=== PATIENT | male | born 1960 | race Caucasian/White ===

== ENCOUNTER 2017-06-26 15:26 | Inpatient (IN) | payer OTHER ==
--- NOTE | 2017-06-26 15:35 | EDPHY ---
H & P HPI/ROS: CHIEF COMPLAINT: LTA. Shoulder pain, Head laceration HISTORY OF PRESENT ILLNESS: The patient is a 57-year-old male, arrived via EMS, presenting as a Limited Trauma Activation. The patient had a mechanical fall while hiking down [facility]. The patient tripped and fell forward. He braced with his arms and hit his head. Immediate onset of severe bilateral shoulder pain. No GHOSH. The patient has a laceration to his head and abrasion to the nose. Also complains of right knee pain. Vitals in the field include HR: 72, BP: 170/100. BGL: 110. The patient received 100mcg Fentanyl and 4 Zofran during transport. Cervical collar in place. REVIEW OF SYSTEMS: Constitutional: No weakness Eyes: No visual changes or eye pain ENT: No dental trauma Neck: Cervical collar in place Respiratory: No shortness of breath Cardiac: left chest pain Gastrointestinal: left sided abd pain, no vomiting Back: No pain or injury Genitourinary: No hematuria Musculoskeletal: Bilateral shoulder pain, Right knee pain Skin: multiple lacerations/abrasions Neurological: mild headache, no dizziness (Roberta Faulkner) Past Medical/Surgical History: Hypertension, Hypothyroid, DM (Roberta Faulkner) Social History: Lives in [place], visiting his son in [place]. (Roberta Faulkner) Physical Exam: General Appearance: Alert, pleasant Head: 2cm frontal scalp laceration Face: Multiple facial abrasions. Superficial laceration to the bridge of his nose. Eyes: No conjunctival erythema, PERRLA, EOMI ENT, Mouth: No hemotympanum, no oral trauma, no bony tenderness. Nose: abrasion over nasal bridge. Neck: Non-tender, full range of motion without pain Respiratory: No chest wall tenderness, lungs clear bilaterally Cardiovascular: Regular rate and rhythm Abdomen: Abdomen is soft, mild LUQ tenderness. Skin: 2cm frontal scalp laceration. Abrasions over the hands. Back: No midline T/L/S tenderness Extremities: Pelvis is stable and nontender; full range of motion without pain. Bilateral shoulder tenderness. Tenderness and swelling of right knee. Neurological: A&Ox3, normal motor function, normal sensory exam, cranial nerves intact. Psychiatric: Mood and affect normal (Roberta Faulkner) Constitutional: Initial Vital Signs Temperature (C) 36.3 C 06/26/17 15:42 Heart Rate 72 06/26/17 15:42 Respiratory Rate 18 06/26/17 15:42 Blood Pressure 184/101 H 06/26/17 15:42 O2 Sat (%) 99 06/26/17 15:42 O2 Delivery Mode Room Air Allergies/Adverse Reactions: No Known Allergies Allergy (Unverified 06/26/17 15:45) Home Medications: Medication Instructions Recorded Levothyroxine [Synthroid 150 mcg 150 mcg PO DAILY06 06/26/17 (*)] Metoprolol Succinate 06/26/17 metFORMIN HCL [Glucophage 500 mg 500 mg PO BIDMEAL 06/26/17 (*)] Medical Decision Making - Diagnostics Imaging: Discussed imaging studies w/ scallop raker Radiologist - Diagnostics Imaging Results: Imaging Impressions Chest CT 06/26/17 00:00 Impression: 1. Bilateral surgical neck fractures. No dislocation. 2. No evidence of acute aortic injury. 3. Clear lungs. No pneumothorax or contusion. Findings discussed with Emergency Department physician, Roberta Faulkner, at 1740 hours 06/26/2017. Lumbar Spine CT 06/26/17 00:00 Impression: Negative. No acute fracture. Findings discussed with Emergency Department physician, Roberta Faulkner, at 1740 hours 06/26/2017. Thoracic Spine CT 06/26/17 00:00 Impression: Negative. No acute fracture. Findings discussed with Emergency Department physician, Roberta Faulkner, at 1740 hours 06/26/2017. Abdomen CT 06/26/17 15:35 Impression: 1. No evidence of solid organ or bowel injury. 2. No lumbar spine or pelvic fracture. 3. Cholelithiasis. 4. Left direct inguinal hernia containing only fat. 5. Ankylosis bilateral sacroiliac joints. Findings discussed with Emergency Department physician, Roberta Faulkner, at 1740 hours 06/26/2017. Cervical Spine CT 06/26/17 15:35 Impression: 1. No acute fracture or soft tissue swelling. 2. If the patient has persistent pain or neurologic deficits, consider cervical spine MRI. Findings discussed with Emergency Department physician, Roberta Faulkner, on June 26, 2017 at 1740. Chest X-Ray 06/26/17 15:35 Impression: Bilateral humeral head/neck fractures, otherwise negative trauma chest. Head CT 06/26/17 15:35 Impression: 1. No acute intracranial hemorrhage or acute skull fracture. 2. Frontal scalp swelling. 3. Old right medial orbital wall fracture. Findings discussed with Emergency Department physician, Roberta Faulkner, on June at 1740. Shoulder X-Ray 06/26/17 15:36 Impression: Acute transverse right humeral neck fracture. Dorsal chip avulsion from the AC joint. Shoulder X-Ray 06/26/17 15:36 Impression: Comminuted left humeral head/neck fracture. Knee X-Ray 06/26/17 17:45 Impression: Negative right knee radiographs. Procedures: Procedure: Laceration repair. Verbal consent was obtained from the patient. The 1 cm laceration on the right middle finger was anesthetized in the usual fashion. The wound was irrigated, draped and explored to its base with a gloved finger. There were no deep structures involved. No tendon injury was identified. The wound was repaired with 5 0 Prolene, 4 simple interrupted sutures. The wound repair was simple. The procedure was performed by myself. Procedure: Laceration repair. Verbal consent was obtained from the patient. The 2 cm laceration on the right 4th finger was anesthetized in the usual fashion. The wound was irrigated, draped and explored to its base with a gloved finger. There were no deep structures involved. No tendon injury was identified. The wound was repaired with 5 0 Prolene, 5 simple interrupted sutures. The wound repair was simple. The procedure was performed by myself. (Darwin Hernandez) ED Course/Re-evaluation: Patient presents as Limited Trauma Activation. Patient has bilateral shoulder tenderness on exam, x-ray imaging was ordered. He has a laceration to the frontal scalp, CT head ordered for GHOSH and mechanism of injury. He has mild left upper quadrant, CT abd/pelvis ordered. Patient is in a cervical collar, I ordered CT cervical spine. X-ray shows bilateral proximal humerus fractures. Please see imaging section for full report. I discussed the findings with the patient. CT imaging is pending. CT abd/pelv and CT cervical spine are negative. I cleared the patient's c- spine. Patient continues to have left knee pain. He has swelling and pain with extension. I ordered a knee x-ray. Xray negative. The patient is unable to use his arms due to pain. He lives in [place] and is currently unable to drive home. I recommended admission, patient agrees with the plan. 1749: I consulted the general surgeon, Dr. Parry, who accepts the patient for admission. 1804: I spoke to Dr. Bright, Orthopedic surgery, he will consult on the patient and plan for operative repair tomorrow. Procedure: Laceration repair. The 2cm laceration on the frontal scalp was anesthetized using lidocaine. The wound was irrigated, draped and explored to its base with a gloved finger. There were no deep structures involved. No foreign body palpable. The wound was repaired with 2 taco. The wound repair was simple. The patient has multiple lacerations to his right 3rd and 4th fingers. The wounds were anesthetized using lidocaine. The wound was irrigated. The wound was repaired by the MOOSE Hernandez. (Roberta Faulkner) Differential Diagnosis: Differential diagnosis includes though it is not limited to open fracture, intracranial hemorrhage, pneumothorax, hemothorax, intra-abdominal hemorrhage. ( Roberta Faulkner) - Data Points Laboratory Results: Laboratory Results 06/26/17 15:37 06/26/17 15:37 06/26/17 06/26/17 06/26/17 15:37 15:37 15:34 WBC 13.94 10^3/uL H 10^3/uL (3.80-9.50) RBC 4.55 10^6/uL 10^6/uL (4.40-6.38) Hgb 15.1 g/dL g/dL (13.7-17.5) POC Hgb 15.0 gm/dL gm/dL (13.7-17.5) Hct 42.9 % % (40.0-51.0) POC Hct 44 % % (40-51) MCV 94.3 fL fL (81.5-99.8) MCH 33.2 pg pg (27.9-34.1) MCHC 35.2 g/dL g/dL (32.4-36.7) RDW 12.8 % % (11.5-15.2) Plt Count 215 10^3/uL 10^3/uL (150-400) MPV 9.6 fL fL (8.7-11.7) Neut % (Auto) 85.3 % H % (39.3-74.2) Lymph % (Auto) 7.3 % L % (15.0-45.0) [place] % (Auto) 6.3 % % (4.5-13.0) Eos % (Auto) 0.3 % L % (0.6-7.6) Baso % (Auto) 0.4 % % (0.3-1.7) Nucleat RBC Rel Count 0.0 % % (0.0-0.2) Absolute Neuts (auto) 11.89 10^3/uL H 10^3/uL (1.70-6.50) Absolute Lymphs (auto) 1.02 10^3/uL 10^3/uL (1.00-3.00) Absolute Monos (auto) 0.88 10^3/uL H 10^3/uL (0.30-0.80) Absolute Eos (auto) 0.04 10^3/uL 10^3/uL (0.03-0.40) Absolute Basos (auto) 0.06 10^3/uL 10^3/uL (0.02-0.10) Absolute Nucleated RBC 0.00 10^3/uL 10^3/uL (0-0.01) Immature Gran % 0.4 % % (0.0-1.1) Immature Gran # 0.05 10^3/uL 10^3/uL (0.00-0.10) POC Sodium 149 mEq/L H mEq/L (134-144) Sodium 145 mEq/L H mEq/L (134-144) POC Potassium 3.6 mEq/L mEq/L (3.3-5.0) Potassium 3.9 mEq/L mEq/L (3.5-5.2) POC Chloride 112 mEq/L H mEq/L (97-110) Chloride 111 mEq/L H mEq/L (97-110) Carbon Dioxide 22 mEq/l mEq/l (22-31) Anion Gap 12 mEq/L mEq/L (8-16) POC BUN 25 mg/dL H mg/dL (7-23) BUN 24 mg/dL H mg/dL (7-23) Creatinine 0.7 mg/dL mg/dL (0.7-1.3) POC Creatinine 0.8 mg/dL mg/dL (0.7-1.3) Estimated GFR > 60 Glucose 111 mg/dL H mg/dL (70-100) POC Glucose 119 mg/dL H mg/dL (70-100) Calcium 9.4 mg/dL mg/dL (8.5-10.4) Medications Given: Hydromorphone HCl (Dilaudid) 0.8 - 1.2 mg IVP Q4 PRN PRN Reason: Pain, Severe Unable to Take PO Stop: 07/06/17 21:59 Last Admin: 06/26/17 22:33 Dose: 1 mg Potassium Chloride/Dextrose/Sod Cl (D5w 1/2 Ns W/ 20 Kcl/L) 1,000 mls @ 125 mls /hr IV CONT DENISA Stop: 12/23/17 21:59 Last Admin: 06/26/17 22:33 Dose: 1,000 mls Discontinued Medications Hydromorphone HCl (Dilaudid) 0.5 mg IVP EDNOW ONE Stop: 06/26/17 19:40 Last Admin: 06/26/17 19:45 Dose: 0.5 mg Sodium Chloride (Ns) 1,000 mls @ 0 mls/hr IV ONCE ONE; Wide Open PRN Reason: Protocol Stop: 06/26/17 15:51 Last Admin: 06/26/17 16:00 Dose: 1,000 mls Morphine Sulfate (Morphine) 6 mg IVP EDNOW ONE Stop: 06/26/17 15:36 Last Admin: 06/26/17 16:18 Dose: 6 mg Morphine Sulfate (Morphine) 6 mg IVP EDNOW ONE Stop: 06/26/17 16:17 Last Admin: 06/26/17 16:23 Dose: Not Given Point of Care Test Results: 06/26/17 15:34 POC Sodium 149 H POC Potassium 3.6 POC Chloride 112 H POC BUN 25 H POC Creatinine 0.8 POC Glucose 119 H Departure - Departure Disposition: [facility] Inpatient Acute Clinical Impression: Bilateral proximal humeral fractures, Multiple abrasions Scalp laceration Qualifiers: Encounter type: initial encounter Qualified Code(s): S01.01XA - Laceration without foreign body of scalp, initial encounter Finger laceration Qualifiers: Encounter type: initial encounter Finger: middle finger Damage to nail status: without damage Foreign body presence: without foreign body Laterality: right Qualified Code(s): S61.212A - Laceration without foreign body of right middle finger without damage to nail, initial encounter Condition: Fair Report Scribed for: Roberta Faulkner Report Scribed by: Iliana Webber Date of Report: 06/26/17 Time of Report: 15:41 Physician Review and Approval Statement: 06/26/17 15:41 Portions of this note were transcribed by a senior medical technologist. I personally performed the history, physical exam, and medical decision-making; and confirmed the accuracy of the information in the transcribed note. (Roberta Faulkner)
[2017-06-26 15:48] LABS: % IMMATURE GRANULYOCYTES 0.4 % (0.0-1.1); ABSOLUTE IMMATURE GRANULOCYTES 0.05 10^3/uL (0.00-0.10); ADD DIFF? NO; ADD MORPH? NO; ADD SCAN? NO; ATYPICAL LYMPHOCYTE FLAG 0 (0-99); FRAGMENT RBC FLAG 0 (0-99); HEMATOCRIT 42.9 % (40.0-51.0); HEMOGLOBIN 15.1 g/dL (13.7-17.5); LEFT SHIFT FLG 0 (0-99); LIPEMIA HEMOLYSIS FLAG 90 (0-99); MEAN CELL HEMOGLOBIN 33.2 pg (27.9-34.1); MEAN CELL HEMOGLOBIN CONCENTR. 35.2 g/dL (32.4-36.7); MEAN CELL VOLUME 94.3 fL (81.5-99.8); MEAN PLATELET VOLUME 9.6 fL (8.7-11.7); PLATELET CLUMPS FLAG 0 (0-99); PLATELET COUNT 215 10^3/uL (150-400); RED BLOOD CELL COUNT 4.55 10^6/uL (4.40-6.38); RED CELL DISTRIBUTION WIDTH 12.8 % (11.5-15.2)
[2017-06-26] MEDS ORDERED: NS 1,000 ML IV ONE (15:50)
[2017-06-26] MEDS ORDERED: IOPAMIDOL (ISOVUE-300) 100 ML BTL ONE ×2 (15:52→16:02)
[2017-06-26 16:14] LABS: ANION GAP 12 mEq/L (8-16); CALCIUM 9.4 mg/dL (8.5-10.4); CARBON DIOXIDE 22 mEq/l (22-31); CHLORIDE 111 mEq/L (97-110); CREATININE 0.7 mg/dL (0.7-1.3); GLOMERULAR FILTRATION RATE > 60; GLUCOSE 111 mg/dL (70-100); POTASSIUM 3.9 mEq/L (3.5-5.2); SODIUM 145 mEq/L (134-144)
[2017-06-26 19:00] LABS: COLOR PALE YELLOW; LEUKOCYTE ESTERASE,URINE NEGATIVE (NEGATIVE); NITRITE,URINE NEGATIVE (NEGATIVE)
[2017-06-26] MEDS ORDERED: HYDROmorphONE/DILAUDID 1 MG/ML INJ IVP ONE (19:39)
[2017-06-26] MEDS ORDERED: HYDROGEN PEROXIDE 236 ML BOTTLE TP ONE (20:06)
--- NOTE | 2017-06-26 20:25 | GHP ---
[f rep st] PREOP HISTORY AND PHYSICAL DATE OF ADMISSION: 06/26/2017 HISTORY OF PRESENT ILLNESS: A 57-year-old male who tripped [place], sustaining bilateral upper arm pain. He did strike his head and does not remember the details of the events but presently is alert and oriented, and complaining only of arm pain, some right knee pain and some discomfort in his right hand. Evaluation in the ER revealed a normal x-ray of his right knee. His head scan was negative for any acute injuries, as well as his neck CT scan. He is complaining of no cervical pain. Abdominal CT scan shows some gallstones and left inguinal hernia but no acute traumatic findings. Spine x-rays were negative for any acute fractures. Chest x-ray and arm x- rays reveal bilateral surgical neck fractures with no dislocation and no other chest trauma. He is admitted at this point for Orthopedic consult, pain control and potential rehab. PAST MEDICAL HISTORY: Includes thyroid treatment with radiation for hyperthyroidism. He has some exophthalmos. He has had hypertension in the past and type 2 diabetes. FAMILY HISTORY: Noncontributory. REVIEW OF SYSTEMS: Reveals no other major medical problems on a full 10-point review of systems. He does have mild hypertension. ALLERGIES: None. MEDICATIONS: Synthroid, metformin, and metoprolol. PHYSICAL EXAM: GENERAL: Reveals an alert 57-year-old male in no acute distress. VITAL SIGNS: He is afebrile. Blood pressure 180/100. HEAD and NECK : Reveals some scalp and nasal abrasions, and a small 2 cm frontal scalp laceration. Pupils are equal. His eyes are nonicteric. He does have some exophthalmos. There are no oral lesions. NECK: Supple, nontender. CHEST: Clear to auscultation and percussion. There are no palpable rib fractures or deformities. CARDIAC: Regular rhythm without murmurs. ABDOMEN: Soft and nontender without masses. EXTREMITIES: Reveal full range of motion in lower extremies but limited movement bilateral UE, full pulses. He has some discomfort in his right knee and mild amount of swelling over his patella, but he does have full range of motion. BACK: Reveals no major tenderness or deformities. NEUROLOGIC: Physiologic and symmetric with intact cranial nerves. He is alert and oriented and 5+ motor exam. PSYCHIATRIC: Reveals him to be cooperative, alert, oriented. SKIN: Reveals some abrasions over his right hand particularly, and a 2 cm frontal scalp laceration. PLAN: Admit for evaluation. Orthopedic consultation. IMPRESSION: 1. Closed head injury with scalp laceration and abrasions. 2. Bilateral humeral neck fractures without dislocation. 3. Blunt right knee trauma. /[id number]/MODL MTDD
--- NOTE | 2017-06-26 20:49 | GCON ---
[f rep st] CONSULTATION DATE OF CONSULTATION: 06/26/2017 CHIEF COMPLAINT: Bilateral shoulder pain, head laceration. HISTORY OF PRESENT ILLNESS: This is a 57-year-old male, who is brought in after a fall hiking. He c aught himself from tripping forward with his arms and he did hit his head. He has a laceration to he ad. He was seen and evaluated, diagnosed with proximal humerus fracture. He also complains of right knee pain, right hand pain, lacerations to his hand. He is admitted to the Trauma Service. He was in town visiting. PAST MEDICAL HISTORY: Significant for diabetes, hypothyroidism. ALLERGIES: No known drug allergies. SOCIAL HISTORY: He is a nonsmoker. HOME MEDICATIONS: Levothyroxine, metformin, metoprolol. REVIEW OF SYSTEMS: Performed. A 10-point review of systems otherwise negative. PHYSICAL EXAM: GENERAL: He is alert, he is oriented. HEENT: He does have a laceration on his head . The rest of his face appears atraumatic. Eyes are equal. His mouth is moist mucous membranes. N LUCAS: Nontender and shows good movement. CHEST: Shows good respiratory effort. CARDIOVASCULAR: Re gular rate and rhythm. ABDOMEN: Soft. EXTREMITIES: His arms I did not attempt to move given his sh oulders. He does not have any tenderness at his elbows or wrists, and his right hand has a laceratio n on the 4th finger and 3rd finger. These are bloody. He can wiggle his fingers. On his lower extr emities, his left lower extremity is without abnormalities, neurovascularly intact. His right knee i s swollen. He has some pain mostly at the knee cap. RADIOLOGY: Knee x-rays/no x-rays. Hand x-ray shows small avulsion fractures 3rd PIP joint. His lef t shoulder x-rays show a comminuted proximal humerus fracture, greater tuberosity fracture. His righ t shoulder x-ray show a 3 part proximal humerus fracture with impaction and his CT showed a proximal humerus fracture as well. ASSESSMENT: 1. Bilateral proximal humerus fractures. 2. Hand laceration. 3. Right knee pain. Patellar bone bruise. PLAN: I discussed with him his condition, treatment options. He is being admitted to the [facility] the Trauma Service. We will plan on him being n.p.o. at midnight. We will plan on fixing these in operating room tomorrow with open reduction and internal fixation of his bilateral proximal humerus fractures. We discussed risks of need for an arthroplasty, nerve injury, continued pain, failure of the implants, arthritis, wound complications, his rehabilitation. He elected to proceed. /[id number]/MODL
[2017-06-26] MEDS ORDERED: D5W 1/2 NS W/ 20 KCl/L 1,000 ML IV SCH (22:00)
[2017-06-26] MEDS ORDERED: ONDANSETRON 4 MG/2 ML VIAL IVP PRN (22:00)
[2017-06-26] MEDS: HYDROmorphONE/DILAUDID 1 MG/ML INJ IVP PRN (22:33)
[2017-06-27] MEDS: HYDROmorphONE/DILAUDID 1 MG/ML INJ IVP PRN ×2 (02:34→06:56)
[2017-06-27] MEDS: LEVOTHYROXINE 150 MCG TAB PO SCH (05:19)
[2017-06-27 05:21] LABS: % IMMATURE GRANULYOCYTES 0.3 % (0.0-1.1); ABSOLUTE IMMATURE GRANULOCYTES 0.03 10^3/uL (0.00-0.10); ADD DIFF? NO; ADD MORPH? NO; ADD SCAN? NO; ATYPICAL LYMPHOCYTE FLAG 0 (0-99); FRAGMENT RBC FLAG 0 (0-99); HEMOGLOBIN 12.5 g/dL (13.7-17.5); LEFT SHIFT FLG 0 (0-99); LIPEMIA HEMOLYSIS FLAG 90 (0-99); MEAN CELL HEMOGLOBIN CONCENTR. 34.7 g/dL (32.4-36.7); PLATELET CLUMPS FLAG 0 (0-99); PLATELET COUNT 170 10^3/uL (150-400); RED BLOOD CELL COUNT 3.79 10^6/uL (4.40-6.38); RED CELL DISTRIBUTION WIDTH 12.7 % (11.5-15.2)
[2017-06-27 05:38] LABS: ANION GAP 9 mEq/L (8-16); CALCIUM 8.1 mg/dL (8.5-10.4); CARBON DIOXIDE 26 mEq/l (22-31); CHLORIDE 102 mEq/L (97-110); CREATININE 0.6 mg/dL (0.7-1.3); GLOMERULAR FILTRATION RATE > 60; GLUCOSE 152 mg/dL (70-100); POTASSIUM 3.4 mEq/L (3.5-5.2); SODIUM 137 mEq/L (134-144)
[2017-06-27] MEDS: METOPROLOL SUCCINATE XR 50 MG TAB PO SCH (09:08)
[2017-06-27] MEDS ORDERED: ceFAZolin 2 GM/DEXTROSE 100 ML IV ONE (09:45)
[2017-06-27] MEDS ORDERED: MIDAZOLAM 2 MG/2 ML VIAL IVP ONE (11:45)
--- NOTE | 2017-06-27 11:45 | PDANEPAE ---
ANE History of Present Illness s/p fall Bilat humurus fracture ANE Past Medical History - Cardiovascular History Hx Hypertension: Yes Hx Arrhythmias: No Hx Chest Pain: No Hx Coronary Artery / Peripheral Vascular Disease: No Hx CHF / Valvular Disease: No Hx Palpitations: No - Pulmonary History Hx COPD: No Hx Asthma/Reactive Airway Disease: No Hx Recent Upper Respiratory Infection: No Hx Oxygen in Use at Home: No Hx Sleep Apnea: No Sleep Apnea Screening Result - Last Documented: Positive - Endocrine History Hx Diabetes: Yes Hypothyroid: Yes Hyperthyroid: No Obesity: no - Renal History Hx Renal Disorders: No - Liver History Hx Hepatic Disorders: No - Neurological & Psychiatric Hx Hx Neurological and Psychiatric Disorders: No - Cancer History Hx Cancer: No - Chronic Pain History Chronic Pain: No ANE Review of Systems Review of systems is: negative Review of Systems: - Exercise capacity Exercise capacity: >=4 METS ANE Patient History - Allergies Allergies/Adverse Reactions: No Known Allergies Allergy (Unverified 06/26/17 15:45) - Home Medications Home medications: home medication list seen and reviewed Home Medications: Levothyroxine [Synthroid 150 mcg (*)] 150 mcg PO DAILY06 06/26/17 [Last Taken ] Metoprolol Tartrate [Lopressor 25 mg (*)] 25 mg PO BID 06/26/17 [Last Taken Unknown] metFORMIN HCL [Glucophage 500 mg (*)] 500 mg PO BIDMEAL 06/26/17 [Last Taken ] - NPO status NPO Status: no food or drink >8 hours NPO Since - Liquids (Date): 06/27/17 NPO Since - Liquids (Time): 00:00 NPO Since - Solids (Date): 06/27/17 NPO Since - Solids (Time): 00:00 - Anes Hx Anes Hx: no prior problems - Smoking Hx Smoking Status: Never smoked ANE Labs/Vital Signs - Labs Result Diagrams: 06/27/17 05:10 06/27/17 05:10 - Vital Signs Blood Pressure: 181/106 Heart Rate: 88 Respiratory Rate: 16 O2 Sat (%): 96 Height: 182.88 cm Weight: 90.718 kg ANE Physical Exam - Airway Neck exam: FROM Mouth exam: normal dental/mouth exam - Pulmonary Pulmonary: no respiratory distress - Cardiovascular Cardiovascular: regular rate and rhythym - ASA Status ASA Status: II ANE Anesthesia Plan Anesthesia Plan: GA w LMA
[2017-06-27] MEDS ORDERED: LR 1,000 ML IV ONE (11:47)
--- NOTE | 2017-06-27 11:54 | SOAPPROG ---
SOAP Progress Note Assessment/Plan: Assessment: B proximal humerus fx Plan: OR for orif NPO since midnight 06/27/17 11:53 Subjective: pain B shoulders Objective: Vital Signs Temp Pulse Resp BP Pulse Ox 36.9 C 88 20 181/106 H 96 06/27/17 11:51 06/27/17 11:51 06/27/17 11:51 06/27/17 11:51 06/27/17 11:51 Laboratory Results 06/27/17 05:10 06/27/17 05:10 06/26/17 06/27/17 06/28/17 05:59 05:59 05:59 Intake Total 300 800 Output Total 400 Balance -100 800 hands nvi ICD10 Worksheet Patient Problems: Problems Problem Status Onset Bilateral proximal humeral fractures Acute Finger laceration Acute Multiple abrasions Acute Scalp laceration Acute
[2017-06-27] MEDS ORDERED: BUPIVACAINE/EPI 0.5% 30 ML SDV ONE (12:12)
[2017-06-27] MEDS ORDERED: fentaNYL 100 MCG/2 ML INJ ONE ×2 (12:24→14:59)
[2017-06-27] MEDS ORDERED: BUPIVACAINE 0.25% 30 ML SDV ONE (12:26)
[2017-06-27] MEDS ORDERED: PROPOFOL/EMULSION 500 MG/50 ML BOTTLE IV ONE (12:31)
[2017-06-27] MEDS ORDERED: HYDROmorphONE/DILAUDID 2 MG/ML INJ ONE ×2 (12:58→15:02)
[2017-06-27] MEDS ORDERED: ALBUTEROL 3 ML DEYVIAL IH PRN (13:02)
[2017-06-27] MEDS ORDERED: ONDANSETRON 4 MG/2 ML VIAL IVP PRN (13:02)
[2017-06-27] MEDS ORDERED: PROMETHAZINE HCL 25 MG/ML INJ IVP PRN (13:02)
[2017-06-27] MEDS ORDERED: HYDROmorphONE/DILAUDID 1 MG/ML INJ IVP PRN ×2 (13:02→22:56)
[2017-06-27] MEDS ORDERED: NALOXONE HCL 0.4 MG/ML INJ IVP PRN (13:02)
[2017-06-27] MEDS ORDERED: fentaNYL 100 MCG/2 ML INJ IVP PRN (13:02)
[2017-06-27] MEDS ORDERED: DEXAMETHASONE 4 MG/ML VIAL IVP PRN (13:02)
[2017-06-27] MEDS ORDERED: LABETALOL HCL 50 MG/10 ML SYR IVP PRN (13:02)
[2017-06-27] MEDS ORDERED: PHENYLEPHRINE HCL 100 MCG/ML SYR ONE (14:54)
--- NOTE | 2017-06-27 15:12 | ASMTCMCOM ---
CM Note CM Note Notes: Pt having surgery today for bilateral humerus fractures; therapies to eval after surgery. Chart review indicates pt visiting from [place]. Payer source not reflected on face sheet at this time. CM to follow for d/c needs. Date Signed: 06/27/2017 03:11 PM Electronically Signed By:GER Ferrari
--- NOTE | 2017-06-27 16:17 | POSTOPPROG ---
Post Op Note Date of Operation: 06/27/17 Surgeon: Fran Bright Pourer: Sin Anesthesia: GET(General Endotracheal) Pre-op Diagnosis: B prox humerus fx Post-op Diagnosis: same Indication: aboce Procedure: orif B prox humerus fx Inf/Abcess present in the surg proc area at time of surgery?: No EBL: [id number]
--- NOTE | 2017-06-27 17:02 | GOP ---
[f rep st] OPERATIVE REPORT DATE OF OPERATION: 06/27/2017 SURGEON: Fran Bright MD FILES SUPERVISOR: Tl Vogt SA. ANESTHESIA: General. PREOPERATIVE DIAGNOSIS: Bilateral proximal humerus fractures. POSTOPERATIVE DIAGNOSIS: Bilateral proximal humerus fracture. PROCEDURE PERFORMED: 1. Open reduction and internal fixation, left proximal humerus fracture. 2. Tenodesis long head of the biceps tendon. 3. Open reduction and internal fixation, right proximal humerus fracture. Separate procedure, separ ately prepped and draped. FINDINGS: SPECIMENS: None. ESTIMATED BLOOD LOSS: 200 mL. INDICATIONS: A 57-year-old male, who sustained these fractures while hiking. He was seen in the ED and admitted to the Trauma Service. I discussed operative fixation of both fractures, given both his arms were compromised and displaced nature, especially the left 1 and the tuberosity being off. We discussed risks of nonunion, malunion, continued pain, impaction of the fracture, impingement, need f or hardware removal, and he elected to proceed. Informed consent was obtained, all questions answere d. He was marked preoperatively. DESCRIPTION OF PROCEDURE: He was taken to the operative suite. Anesthesia was administered. He was given 2 g of Ancef. He was sterilely prepped and draped in normal fashion on the left side. A time -out was performed verifying the patient, side, site, at that location, agreement with the team. I m richard an incision over the shoulder from the deltopectoral approach, protecting neurovascular structure s. I worked in this plane with splint immobilization, placed retractors. His long head of the bicep s tendon was draped over the fracture site and actually impaled on 1 of the fracture fragments. I mo bilized this and did a tenotomy of this and tagged this for later use. I was able to mobilize the fr acture fragments and reduce this. I tagged the tuberosity fragments to the rotator cuff with #2 Fibe rWire. After obtaining reduction I placed a plate on this provisional fixation. Obtained C-arm imag es showing acceptable reduction of this. I did feel the tuberosity was a little mal reduced but was stable and did have quite a bit of soft tissue covering it. I did not think that further dissecting this was likely to help. I then placed cortical screws to bring this to bone, locking screws proxima lly and distally for fixation. This moved well as a unit. I checked the screws with C-arm with live scan to make sure there were not in the joint. The fracture appeared stable. I tenodesed the bicep s tendon back in the groove and tied this into the plate. I tied the rotator cuff to the plate as we ll. I then irrigated this, closed with 0 Vicryl, 2-0 Vicryl, 3-0 Quill and Dermabond. He was placed in sterile dressing. His drapes were taken down. He was repositioned, prepped and draped on the right side. We gave him Ancef, performed another time out. The incision was made and the same deltopectoral approach was uti lized. We performed a similar procedure and I reduced the humerus. I placed a plate provisionally. Checked this fluoroscopically, placed the final fixation. I did not need to do a tenodesis of the b iceps on this side. I obtained good stable bony fixations, moved well as a unit and x-rays confirmed no screws in the joint, good hardware placement. He was irrigated and closed with 0 Vicryl, 2-0 Vicryl, 3-0 Quill, and Dermabond. Taken to PACU in st able condition. IMPLANT: Synthes proximal humerus plate on both sides. COMPLICATIONS: None. DRAINS: None. CONDITION: Stable. /[id number]/MODL
--- NOTE | 2017-06-27 19:02 | POSTANESTH ---
Post Anesthetic Evaluation Cardiovascular Status: Normal, Stable Respiratory Status: Normal, Stable Level of Consciousness/Mental Status: Can Participate in Eval Pain Control: Adequate, Prn Tx Ordered Nausea/Vomiting Control: Adequate, Prn Tx Ordered Complications Possibly Related to Anesthesia: None Noted
[2017-06-27] MEDS: oxyCODONE IR 5 MG TAB PO PRN (20:34)
--- NOTE | 2017-06-27 23:06 | TRAUMAPN ---
Assessment/Plan: 57 year old s/p fall with positive loss of consciousness and bilateral humeral fractures POD # 0 s/p ORIF bilateral humerus Scalp laceration - remove taco on 07/06/2017 No additional injuries noted on tertiary survey Diabetes - metformin, will check glucose AC and HS. If stable, then can change frequency Hypothyroid - synthroid Hypertension - home meds I have consulted hospitalist to see tomorrow Discussed with Kade that he will likely need rehab vs SNF as will be unable to perform many ADLS. Will await PT/OT/ST recs Neuro - Pain controlled with PO Resp - IS Cards - Home meds GI - No active issues (hernia on CT) FEN - Carb controlled diet Endo - Synthroid Heme/ID - Start Lovenox in AM Dispo - Continue hospital management. S: Pain controlled after surgery Objective: Vital Signs Temp Pulse Resp BP Pulse Ox 36.5 C 76 18 120/63 93 06/27/17 20:50 06/27/17 20:50 06/27/17 20:50 06/27/17 20:50 06/27/17 20:50 Laboratory Results 06/27/17 05:10 06/27/17 05:10 06/26/17 06/27/17 06/28/17 05:59 05:59 05:59 Intake Total 300 2945 Output Total 400 37 Balance -100 2908 Physical Exam - Physical Exam General Appearance: WD/WN, alert, no apparent distress EENT: PERRL/EOMI, normal ENT inspection, pharynx normal, No scleral icterus (R) , No scleral icterus (L) Neck: non-tender, full range of motion Respiratory: chest non-tender, lungs clear Cardiac/Chest: regular rate, rhythm, other (2+ radial pulse) Abdomen: normal bowel sounds, non-tender, soft Skin: warm/dry, other (swelling of knee) Extremities: other (bilateral slings. R dressing dry. L with scant stain) Neuro/Psych: no motor/sensory deficits, alert, normal mood/affect
[2017-06-28] MEDS: oxyCODONE IR 5 MG TAB PO PRN ×5 (01:30→22:34)
[2017-06-28 06:06] LABS: % IMMATURE GRANULYOCYTES 0.2 % (0.0-1.1); ABSOLUTE IMMATURE GRANULOCYTES 0.02 10^3/uL (0.00-0.10); ADD DIFF? NO; ADD MORPH? NO; ADD SCAN? NO; ATYPICAL LYMPHOCYTE FLAG 0 (0-99); FRAGMENT RBC FLAG 0 (0-99); HEMATOCRIT 29.9 % (40.0-51.0); LEFT SHIFT FLG 0 (0-99); LIPEMIA HEMOLYSIS FLAG 80 (0-99); MEAN CELL HEMOGLOBIN 32.2 pg (27.9-34.1); MEAN CELL HEMOGLOBIN CONCENTR. 33.4 g/dL (32.4-36.7); MEAN CELL VOLUME 96.1 fL (81.5-99.8); MEAN PLATELET VOLUME 10.4 fL (8.7-11.7); PLATELET CLUMPS FLAG 30 (0-99); PLATELET COUNT 182 10^3/uL (150-400); RED BLOOD CELL COUNT 3.11 10^6/uL (4.40-6.38); RED CELL DISTRIBUTION WIDTH 12.8 % (11.5-15.2)
[2017-06-28] MEDS: LEVOTHYROXINE 150 MCG TAB PO SCH (06:06)
[2017-06-28 06:23] LABS: ANION GAP 8 mEq/L (8-16); CALCIUM 7.8 mg/dL (8.5-10.4); CARBON DIOXIDE 26 mEq/l (22-31); CHLORIDE 101 mEq/L (97-110); CREATININE 0.6 mg/dL (0.7-1.3); GLOMERULAR FILTRATION RATE > 60; GLUCOSE 94 mg/dL (70-100); POTASSIUM 3.8 mEq/L (3.5-5.2); SODIUM 135 mEq/L (134-144)
--- NOTE | 2017-06-28 07:34 | SOAPPROG ---
SOAP Progress Note Assessment/Plan: Assessment: B proximal humerus fx Plan: ORIF B proximal fx 06/27 ROM as tolerated B shoulders 5 lbs wt limit BUE may shower, leave dressings in place May drive to [place] when clears PT OT and feels able If unable may need placement locally will need f/u there in approx 10 days for xrays Subjective: pain in shoulders Objective: Vital Signs Temp Pulse Resp BP Pulse Ox 37.1 C 85 16 171/68 H 96 06/28/17 07:29 06/28/17 07:29 06/28/17 07:29 06/28/17 07:29 06/28/17 07:29 Laboratory Results 06/28/17 05:05 06/28/17 05:05 06/27/17 06/28/17 06/29/17 05:59 05:59 05:59 Intake Total 300 3295 Output Total 400 37 Balance -100 3258 dressings cdi NVI in UE's ICD10 Worksheet Patient Problems: Problems Problem Status Onset Bilateral proximal humeral fractures Acute Finger laceration Acute Multiple abrasions Acute Scalp laceration Acute
[2017-06-28] MEDS: METOPROLOL SUCCINATE XR 50 MG TAB PO SCH (08:15)
[2017-06-28] MEDS: ENOXAPARIN 40 MG/0.4 ML SYR SC SCH (08:16)
--- NOTE | 2017-06-28 09:48 | TRAUMAPN ---
- Problem/Surgery Performed (1) Diabetes 1.5, managed as type 2 Assessment/Plan: continue Metformin (2) Hypothyroidism (acquired) Assessment/Plan: s/p I-131 presumably from Grave's disease (3) Concussion Assessment/Plan: LOC less than 30 minutes/no post injury neuro defecits Qualifiers: Loss of consciousness presence/duration: with LOC of 30 min or less (4) Fall (on) (from) other stairs and steps, initial encounter Assessment/Plan: mechanism of injury/fell descending [facility] trail on the lower stairs (5) Bilateral proximal humeral fractures Assessment/Plan: s/p ORIF Dr. Bright/starting PT today Assessment/Plan: s/p fall with CHI/concussion, bilateral humerus fx s/p ORIF Dr. Bright, hx DM/ HTN/hypothyroid Overall Kade is doing well with an uncomplicated recovery thus far. I would recommend continuing anticoagulation after discharge for 7-10 days as he will be returning to [place], [place] by car and is at mod/high risk for VTE Subjective: sitting up in chair. tolerated breakfast Brother in-law at bedside Objective: Vital Signs Temp Pulse Resp BP Pulse Ox 37.1 C 90 16 171/68 H 96 06/28/17 07:29 06/28/17 08:15 06/28/17 07:29 06/28/17 07:29 06/28/17 07:29 Laboratory Results 06/28/17 05:05 06/28/17 05:05 06/27/17 06/28/17 06/29/17 05:59 05:59 05:59 Intake Total 300 3295 Output Total 400 37 Balance -100 3258 - C-Spine Clearance Cervical Spine Cleared: Yes Provider who Cleared Cervical Spine: Sohan
[2017-06-28] MEDS: SENNOSIDES/DOCUSATE SODIUM TAB PO SCH ×2 (11:50→22:35)
[2017-06-28] MEDS: metFORMIN HCL 500 MG TAB PO SCH (17:56)
[2017-06-29] MEDS: oxyCODONE IR 5 MG TAB PO PRN ×3 (02:08→23:11)
[2017-06-29] MEDS: LEVOTHYROXINE 150 MCG TAB PO SCH (05:41)
[2017-06-29 05:42] LABS: HEMOGLOBIN 8.9 g/dL (13.7-17.5)
--- NOTE | 2017-06-29 08:28 | SOAPPROG ---
SOAP Progress Note Assessment/Plan: Assessment: B proximal humerus fx Plan: ORIF B proximal fx 06/27 ROM as tolerated B shoulders 5 lbs wt limit BUE may shower, leave dressings in place May drive to [place] when clears PT OT and feels able Agree with DVT prophaxsis especially since he will be traveling will need f/u there in approx 10 days for xrays call [phone] 06/29/17 08:22 Subjective: pain improving Objective: Vital Signs Temp Pulse Resp BP Pulse Ox 36.8 C 90 16 171/68 H 93 06/29/17 08:00 06/29/17 08:00 06/29/17 08:00 06/29/17 08:00 06/29/17 08:00 Laboratory Results 06/29/17 05:30 06/28/17 05:05 06/28/17 06/29/17 06/30/17 05:59 05:59 05:59 Intake Total 3295 500 Output Total 37 Balance 3258 500 dressing dry nvi in hands ICD10 Worksheet Patient Problems: Problems Problem Status Onset Bilateral proximal humeral fractures Acute Concussion Acute Diabetes 1.5, managed as type 2 Acute Fall (on) (from) other stairs and steps, initial encounter Acute Finger laceration Acute Hypothyroidism (acquired) Acute Multiple abrasions Acute Scalp laceration Acute
[2017-06-29] MEDS: metFORMIN HCL 500 MG TAB PO SCH ×2 (08:53→18:46)
[2017-06-29] MEDS: SENNOSIDES/DOCUSATE SODIUM TAB PO SCH ×2 (08:53→20:47)
[2017-06-29] MEDS: METOPROLOL SUCCINATE XR 50 MG TAB PO SCH (08:53)
[2017-06-29] MEDS: ENOXAPARIN 40 MG/0.4 ML SYR SC SCH (08:53)
--- NOTE | 2017-06-29 10:34 | TRAUMAPN ---
Assessment/Plan: 57-year-old male status post fall with bilateral humeral neck fractures status post ORIF on June 27. Patient overall continues to do well, and has been working with PT OT daily. There was a question of whether not he needed inpatient rehabilitation versus transfer home. His lokeunf-hj-ekp is in town in able to drive him back to [facility] and would like to do this once cleared. We will touch base with all of this therapy groups to ensure that this is the safest for the patient. If not, we will look for inpatient rehabilitation Subjective: Patient wants to go home Objective: Vital Signs Temp Pulse Resp BP Pulse Ox 36.8 C 90 16 171/68 H 93 06/29/17 08:00 06/29/17 08:00 06/29/17 08:00 06/29/17 08:00 06/29/17 08:00 Laboratory Results 06/29/17 05:30 06/28/17 05:05 06/28/17 06/29/17 06/30/17 05:59 05:59 05:59 Intake Total 3295 500 480 Output Total 37 Balance 3258 500 480 - C-Spine Clearance Cervical Spine Cleared: Yes Provider who Cleared Cervical Spine: Sohan
--- NOTE | 2017-06-29 15:20 | ASMTCMCOM ---
CM Note CM Note Notes: Pt does not want to pursue [facility] innet rehab. Pt does nto meet criteria for [facility] rehab and [facility] for [facility] to take him. Pt interested in IPR or SNF in [place], referral faxed to [facility] [phone] Carissa [phone] F:[phone] who reports pt [place] Dr Gandhi [phone] F:[phone] has to initiate consult for IPR eval. Several [place] facilities seem interested but CM awaiting [place] auth. CM to follow. Date Signed: 06/29/2017 03:19 PM Electronically Signed By:GER Ferrari
--- NOTE | 2017-06-29 17:15 | ASMTCMCOM ---
ANAI Note ANAI Note Notes: [facility] has screened pt and he meets criteria now the [place] needs to provide auth. Pt under impression [place] will take 5[place]6 months to auth, ANAI has not been able to obtain auth estimated length of time from Carissa at [place]. Contact at [facility] is Tori [phone]. Pt eager to return to [place], brother in law is also here and is renting hotel room. Pt wants to d/c as early as possible tomorrow. Date Signed: 06/29/2017 05:14 PM Electronically Signed By:GER Ferrari
[2017-06-30] MEDS: oxyCODONE IR 5 MG TAB PO PRN (05:24)
[2017-06-30] MEDS: LEVOTHYROXINE 150 MCG TAB PO SCH (05:25)
[2017-06-30 08:05] VITALS: BP 107/65; PULSE 86; RESP 16; TEMP 98.1; O2SAT 99
[2017-06-30] MEDS: SENNOSIDES/DOCUSATE SODIUM TAB PO SCH (08:26)
[2017-06-30] MEDS: metFORMIN HCL 500 MG TAB PO SCH (08:27)
[2017-06-30] MEDS: METOPROLOL SUCCINATE XR 50 MG TAB PO SCH (08:28)
[2017-06-30] MEDS: ENOXAPARIN 40 MG/0.4 ML SYR SC SCH (08:28)
--- NOTE | 2017-06-30 11:19 | TRAUMAPN ---
Assessment/Plan: 57yo M s/p fall with bilat humeral neck fractures s/p ORIF on 06/27/17. Recovering well. Will follow Dr. Bright's d/c recs. Lovenox PPX for long car ride back to [place]. Cont pain control Recommended that he get follow up imaging once home Head taco to come out in 1 weeks. Hand taco removal in 10 days. Dispo: to home today. He will follow up with his PCP in [place]. Seen c Dr. Parry S: patient eager to get home to [place]. His pdswjzq-su-dlo is planning to drive him home. No complaints. O: Pt sitting up on side of bed, NAD MMM Lungs CTAB, no increased WOB Bilat UE ROM limited by pain, but reportedly improving Objective: Vital Signs Temp Pulse Resp BP Pulse Ox 36.7 C 86 16 107/65 99 06/30/17 08:00 06/30/17 08:00 06/30/17 08:00 06/30/17 08:00 06/30/17 08:00 Laboratory Results 06/29/17 05:30 06/28/17 05:05 06/29/17 06/30/17 07/01/17 05:59 05:59 05:59 Intake Total 500 1155 450 Balance 500 1155 450 - C-Spine Clearance Cervical Spine Cleared: Yes Provider who Cleared Cervical Spine: Sohan
--- NOTE | 2017-06-30 16:50 | ASMTCMCOM ---
CM Note CM Note Notes: Pt wants to return to [place], does not want to wait for [place] auth for any services. Carissa w [place] updated, she reports auth takes [address] [facility] inpatient rehab updated, she will call pt in a week to check in. Pt will follow up w [place] for any services needed. Pt medically stable for d/c w brother driving him back to [place]. Date Signed: 06/30/2017 04:49 PM Electronically Signed By:GER Ferrari
--- NOTE | 2017-06-30 16:51 | ASDISCHSUM ---
Discharge Information Plan Status:Home with No Needs Medically Cleared to Leave: Discharge Date:06/30/2017 11:08 AM D/C Disposition:Home, Routine, Self-Care ADT D/C Disposition:Home, Routine, Self-Care Projected Discharge Date:06/30/2017 11:00 AM Transportation at D/C: Discharge Delay Reason: Follow-Up Date:06/30/2017 11:00 AM Discharge Slot: Final Diagnosis: Placement Information Referral Type:*Assisted/SNF Referral ID:[id number] Provider Name: Address 1: Phone Number: Address 2: Fax Number: City: Selection Factors: State: Referral Type:[facility] Referral ID:[id number] Provider Name: Address 1: Phone Number: Address 2: Fax Number: City: Selection Factors: State: Patient Contact Information Contact Name:TIFF Relationship:Sister Address: Work Phone: City: [facility] Phone: [facility] Code: Email: Financial Information Financial Class:HMO and PPO Plans Primary Plan Desc:[employer] Primary Plan Number:[id number] Secondary Plan Desc: Secondary Plan Number: Assessment Information [facility] CM Progress Note CM Note CM Note Notes: Pt having surgery today for bilateral humerus fractures; therapies to eval after surgery. Chart review indicates pt visiting from [place]. Payer source not reflected on face sheet at this time. CM to follow for d/c needs. Date Signed: 06/27/2017 03:11 PM Electronically Signed By:GER Ferrari [facility] CM Progress Note CM Note CM Note Notes: Pt does not want to pursue [facility] inpat rehab. Pt does nto meet criteria for [facility] inpat rehab and [place] beds may have to be full for them to take him. Pt interested in IPR or SNF in [place], referral faxed to [facility] [phone] Carissa [phone] F:[phone] who reports pt [place] Dr Gandhi [phone] F:[phone] has to initiate consult for IPR eval. Several [place] facilities seem interested but CM awaiting [place] auth. CM to follow. Date Signed: 06/29/2017 03:19 PM Electronically Signed By:GER Ferrari [facility] CM Progress Note CM Note CM Note Notes: [facility] has screened pt and he meets criteria now the [place] needs to provide auth. Pt under impression [facility] will take 5[place]6 months to auth, CM has not been able to obtain auth estimated length of time from Carissa at [place]. Contact at [facility] is Tori [phone]. Pt eager to return to [place], brother in law is also here and is renting hotel room. Pt wants to d/c as early as possible tomorrow. Date Signed: 06/29/2017 05:14 PM Electronically Signed By:GER Ferrari [facility] CM Progress Note CM Note ANAI Note Notes: Pt wants to return to [place], does not want to wait for [place] auth for any services. Carissa ROSADO updated, she reports auth takes 24 hours. Liz w [facility] inpatient rehab updated, she will call pt in a week to check in. Pt will follow up w [place] in [place] for any services needed. Pt medically stable for d/c w brother driving him back to [place]. Date Signed: 06/30/2017 04:49 PM Electronically Signed By:GER Ferrari Intervention Information
== END 2017-06-30 11:08 | disposition home or self-care (01) | DRG 493 ==
LOC: OBSVTOIN 21:59 → F3N 22:16
PROVIDERS: ADMIT Surgery; ATTEND Surgery
PROC: 0HQFXZZ Repair Right Hand Skin, External Approach (ICD-10-PCS; 2017-06-26)
PROC: 0HQ0XZZ Repair Scalp Skin, External Approach (ICD-10-PCS; 2017-06-26)
PROC: BP1AZZZ Fluoroscopy of Right Humerus (ICD-10-PCS; 2017-06-27)
PROC: BP1BZZZ Fluoroscopy of Left Humerus (ICD-10-PCS; 2017-06-27)
PROC: 0LS40ZZ Reposition Left Upper Arm Tendon, Open Approach (ICD-10-PCS; principal; 2017-06-27 12:15)
PROC: 0PSD04Z Reposition Left Humeral Head with Internal Fixation Device, Open Approach (ICD-10-PCS; principal; 2017-06-27 12:15)
PROC: 0PSC04Z Reposition Right Humeral Head with Internal Fixation Device, Open Approach (ICD-10-PCS; principal; 2017-06-27 12:15)
DX: S42.292A Other displaced fracture of upper end of left humerus, initial encounter for closed fracture (principal); S42.291A Other displaced fracture of upper end of right humerus, initial encounter for closed fracture; S46.192A Other injury of muscle, fascia and tendon of long head of biceps, left arm, initial encounter; S01.01XA Laceration without foreign body of scalp, initial encounter; S06.0X1A Concussion with loss of consciousness of 30 minutes or less, initial encounter; S61.212A Laceration without foreign body of right middle finger without damage to nail, initial encounter; S61.214A Laceration without foreign body of right ring finger without damage to nail, initial encounter; S80.01XA Contusion of right knee, initial encounter; M25.561 Pain in right knee; M79.641 Pain in right hand; W17.81XA Fall down embankment (hill), initial encounter; Y93.01 Activity, walking, marching and hiking; Y92.828 Other wilderness area as the place of occurrence of the external cause; I10 Essential (primary) hypertension; E03.9 Hypothyroidism, unspecified; E11.9 Type 2 diabetes mellitus without complications; Z79.84 Long term (current) use of oral hypoglycemic drugs
CPT/HCPCS: 82947-QW; 92507-GN; 92523-GN; 96374; 97116-GP; 97161-GP; 97166-GO; 97530-GP; 97535-GO; C1713; C1769; J0690; J1170; J1650; J2250; J2370; J2704; J3010; Q9967